=== PATIENT | female | born 1990 | race Two or more races ===

== ENCOUNTER 2018-08-05 17:44 | Emergency (ER) | payer OTHER ==
[~2018-08-05] VITALS: Ht 162.6 cm; Wt 77.1 kg
[2018-08-05 18:52] LABS: Alcohol, Urine < 3.0 mg/dL (0-5); Amphetamine Screen, Urine NEGATIVE (NEGATIVE); Barbiturate Scree,Urine NEGATIVE (NEGATIVE); Benzodiazephine Screen, Urine NEGATIVE (NEGATIVE); Cannabinoid Screen, Urine NEGATIVE (NEGATIVE); Cocaine Screen, Urine NEGATIVE (NEGATIVE); Opiate Scree,Urine NEGATIVE (NEGATIVE); Phencyclidine Screen, Urine NEGATIVE (NEGATIVE)
[2018-08-05 18:55] LABS: Urine Bacteria FEW /hpf (None Seen); Urine Blood Negative /uL (Negative); Urine Mucus FEW (None Seen); Urine Specific Gravity 1.014 (1.001-1.035); Urine WBC 5 /hpf (0 - 5)
[2018-08-05 20:21] LABS: Basophils # (auto) 0 uL; Basophils % (auto) 0.3 % (0.0-2.0); Eosinophils # (auto) 0 uL; Eosinophils % (auto) 0.3 % (0.0-7.0); Hematocrit 44.2 % (36.0-46.0); Hemoglobin 14.6 g/dL (12.2-16.2); Lymphocytes % (auto) 23.4 % (10.0-50.0); Mean Corpuscular Hemoglobin 31.2 pg (28.0-32.0); Mean Corpuscular Hgb Conc. 32.9 g/dL (32.0-36.0); Mean Corpuscular Volume 94.6 fL (80.0-100.0); Monocytes # (auto) 0.9 uL; Neutrophils # (auto) 8.9 uL; Nucleated Red Blood Cells % 0.1 %; Platelet Count (auto) 313 10^3/uL (140-450); Red Blood Cells 4.67 10^6/uL (4.0-5.20); Red Cell Distribution Width 12.8 % (11.8-14.3); White Blood Cell 12.9 10^3/uL (4.4-10.8)
[2018-08-05 20:42] LABS: Albumin 4.1 g/dL (3.4-5.0); Anion Gap 8 (5-15); Blood Urea Nitrogen 10 mg/dL (7-18); Calcium 9.2 mg/dL (8.5-10.1); Carbon Dioxide 23 mmol/L (21-32); Chloride 110 mmol/L (98-107); Glucose 85 mg/dL (74-106); Potassium 3.7 mmol/L (3.5-5.1); Sodium 141 mmol/L (136-145)
[2018-08-05 20:48] LABS: Alanine Aminotransferase 63 U/L (13-56); Alkaline Phosphatase 81 U/L (45-117); Aspartate Aminotransferase 29 U/L (15-37); Bilirubin, Total 0.4 mg/dL (0.2-1.0); GFR African American 114 mL/min; GFR Non-African American 94 mL/min; Total Protein 8.1 g/dL (6.4-8.2)
[2018-08-05] MEDS ORDERED: LORazepam 2MG/ML-1ML VIAL IV ONE (21:45)
[2018-08-05 22:31] LABS: INR 0.94 (0.9-1.15); Partial Thromboplastin Time 27.1 sec (23.78-33.04); Prothrombin Time 10.1 sec (9.27-12.13)
[2018-08-05 23:13] VITALS: BP 109/74
== END 2018-08-05 23:25 | disposition home or self-care (01) ==
LOC: ER 17:49
DX: R07.9 Chest pain, unspecified (principal); R06.4 Hyperventilation; M79.602 Pain in left arm
CPT/HCPCS: 36415; 71046; 80053; 80307; 81001; 81025; 83880; 84484; 85025; 85379; 85610; 85730; 93005